=== PATIENT | male | born 1945 | race Caucasian/White ===

== ENCOUNTER 2017-05-17 20:59 | Emergency (ER) | payer OTHER ==
--- NOTE | 2017-05-17 22:10 | EDPHY ---
H & P Smoking Status: Never smoked Time Seen by Provider: 05/17/17 22:03 HPI/ROS: CHIEF COMPLAINT: Left thumb laceration crush injury HISTORY OF PRESENT ILLNESS: 71-year-old male visiting from [place] was exiting a vehicle this evening when he accidentally closed the door on his left thumb sustained a crush injury and a laceration. Tetanus is up-to-date. No paresthesia. PHYSICAL EXAM (Prior to examination, patient consented to physical exam, hands were washed and my usual and customary physical exam procedures followed) 1) GENERAL: Well-developed, well-nourished, alert and oriented. Appears to be in no acute distress. 2) HEAD: Normocephalic 3) HEENT: sclera anicteric 4) LUNGS: Breathing comfortably. 5) SKIN: left thumb 2.5 cm laceration distal phalanx 6) MUSCULOSKELETAL: flexor extensor function intact at the MCP and IP . Tender to palpation distal phalanx. No signs of infection. Negative kanavel 7) NEUROLOGIC: Full sensation distally (Jose Juan Canales) Constitutional: Initial Vital Signs Temperature (C) 36.6 C 05/17/17 21:04 Heart Rate 70 05/17/17 21:04 Respiratory Rate 18 05/17/17 21:04 Blood Pressure 186/92 H 05/17/17 21:04 O2 Sat (%) 95 05/17/17 21:04 O2 Delivery Mode Room Air Allergies/Adverse Reactions: No Known Allergies Allergy (Unverified 05/17/17 21:07) Home Medications: Medication Instructions Recorded Aspirin 81mg (*) 05/17/17 Cephalexin [Keflex] 500 mg PO QID 7 Days 05/17/17 MDM/Departure - [facility] Imaging Results: Images reviewed myself (Jose Juan Canales) Procedures: Procedure: Laceration repair. I explained the indications, risks and benefits for both laceration repair and anesthetic administration. Verbal consent was obtained from the patient . The laceration on the left eye was anesthetized using 0.5% bupivicaine without epinephrine digital nerve block. After anesthetic administered the patient was observed for a period of time and had no apparent adverse effects. The wound was cleaned, prepped, draped in normal sterile fashion and explored to its base. No foreign body seen, no foreign bodies palpated. There were no deep structures involved. No tendon injury was identified. The wound was repaired with 6 interrupted 5 O Prolene suture. The wound repair was simple. The procedure was performed by myself. Patient has been informed that scarring will occur, although efforts have been made to minimize this. Procedure: Splint A aluminum finger splint was applied by ER emissions repair technician. After application of the splint I returned and re-examined the patient. The splint was adequately immobilizing the joint and distal to the splint the patient's circulation and sensation were intact. Patient shows no signs of compartment syndrome. Was given orthopedic precautions. (Jose Juan Canales) Medications Given: Discontinued Medications Cephalexin (Keflex 500 Mg Prepack#4) 1 btl TAKEHOME EDNOW ONE PRN Reason: Protocol Stop: 05/17/17 23:13 Last Admin: 05/17/17 23:22 Dose: 1 btl Cephalexin HCl (Keflex) 500 mg PO EDNOW ONE PRN Reason: Protocol Stop: 05/17/17 22:40 Last Admin: 05/17/17 22:46 Dose: 500 mg ED Course/Re-evaluation: This patient was re-evaluated with serial examinations. Discussed his imaging results showing a a fracture of the left thumb. He has been informed that although no osseous fragments are visualized on exam this is considered an open fracture and the importance of starting the patient on antibiotics and following up with Hand surgery has been stressed on numerous instances. He feels comfortable with this plan. He has been splinted. Usual and customary discharge precautions instructions provided. (Jose Juan Canales) The patient was evaluated and managed by the physician hr assistant. I have reviewed this chart and I agree with the findings and plan of care as documented , as indicated by my signature. I am the secondary supervising physician. ( Radha Pedro) - Depart Disposition: Home, Routine, Self-Care Clinical Impression: Open finger fracture Qualifiers: Encounter type: initial encounter Finger: thumb Phalanx: distal Fracture alignment: nondisplaced Laterality: left Qualified Code(s): S62.525B - Nondisplaced fracture of distal phalanx of left thumb, initial encounter for open fracture Condition: Good Instructions: Cephalexin (By mouth), Hand Fracture (ED) Additional Instructions: Return to the ER if you develop redness, swelling, discharge, warmth to the wound, red streaks going up your arm , or any other symptoms that concern you. Your sutures need to be removed in 10 days. Recommend you follow up with orthopedic surgeon comfortably hand surgeon, in [place] within the next 3-6 days Prescriptions: Cephalexin [Keflex] 500 mg PO QID 7 Days Referrals: Katia Jaimes MD [Medical Doctor] - 2-3 days, call for appt. (Dr. Katia Jaimes is a hand surgeon. You may also follow up with an orthopedic surgeon in [place] )
[2017-05-17] MEDS ORDERED: CEPHALEXIN 500 MG CAP PO ONE (22:39)
[2017-05-17] MEDS ORDERED: CEPHALEXIN 500MG PREPACK#4 BTL TAKEHOME ONE (23:12)
[2017-05-17 23:17] VITALS: BP 147/76; PULSE 69; RESP 16; TEMP 98.6; O2SAT 94
== END 2017-05-17 23:23 | disposition home or self-care (01) ==
PROC: 0HQGXZZ Repair Left Hand Skin, External Approach (ICD-10-PCS; principal; 2017-05-17)
CPT/HCPCS: 12001; 73140; 99283; L3925